=== PATIENT | male | born 1950 | race American Indian/Alaskan Native ===

== ENCOUNTER 2022-05-29 09:47 | Emergency (ER) | payer SELFPAY ==
--- NOTE | 2022-05-29 12:03 | XRay Report ---
Right knee 3 views INDICATION: Fall FINDINGS: Advanced tricompartmental degenerative osteoarthrosis. No acute fracture or dislocation. So me calcifications seen in the posterior knee soft tissues IMPRESSION: 1. Advanced tricompartmental degenerative change 2. Calcific soft tissue densities in the posterior knee soft tissues, nonspecific Signer Name: Duane Moore MD Signed: 05/29/2022 11:58 AM Workstation Name: [id number]
--- NOTE | 2022-05-29 12:06 | XRay Report ---
RIGHT RIBS WITH PA CHEST 4 VIEWS INDICATION: pain with injury. COMPARISON: None. IMPRESSION: Mildly displaced right lateral fifth and sixth rib fractures are identified. The remaini ng right ribs appear intact. No significant pneumothorax is detected. Signer Name: Genaro Valenzuela Jr, MD Signed: 05/29/2022 12:01 PM Workstation Name: [id number]
[2022-05-29] MEDS ORDERED: IBUPROFEN 600 MG TAB PO ONE (12:42)
[2022-05-29] MEDS ORDERED: ONDANSETRON 4 MG ODT TAB PO ONE (12:42)
[2022-05-29] MEDS ORDERED: oxyCODONE /ACETAMINOPHEN 5-325MG TAB PO ONE (12:42)
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
[2022-05-29] MEDS ORDERED: traMADol 50 MG TAB PO ONE (15:27)
[2022-05-29 15:36] VITALS: BP 149/92
== END 2022-05-29 15:35 | disposition home or self-care (01) ==
LOC: ED 09:47
DX: S83.91XA Sprain of unspecified site of right knee, initial encounter (principal); S22.32XA Fracture of one rib, left side, initial encounter for closed fracture; S20.211A Contusion of right front wall of thorax, initial encounter; I10 Essential (primary) hypertension; Z98.890 Other specified postprocedural states; W01.10XA Fall on same level from slipping, tripping and stumbling with subsequent striking against unspecified object, initial encounter; Y93.I9 Activity, other involving external motion; Y92.89 Other specified places as the place of occurrence of the external cause; Y99.8 Other external cause status
CPT/HCPCS: 99283; J3490; Q0162